=== PATIENT | male | born 1995 | race African-American/Black ===

== ENCOUNTER 2016-11-17 00:35 | Emergency (ER) | payer OTHER ==
[~2016-11-17] VITALS: Ht 175.3 cm; Wt 64.0 kg
[~2016-11-17 00:35] MED LIST: NAPR1TAB PO
[2016-11-17 05:50] VITALS: BP 101/62
== END 2016-11-17 07:07 | disposition left against medical advice (07) ==
LOC: ER 00:35
DX: Z53.21 Procedure and treatment not carried out due to patient leaving prior to being seen by health care provider (principal)

== ENCOUNTER 2020-06-21 19:59 | Emergency (ER) | payer MEDICAID, OTHER ==
[~2020-06-21] VITALS: Ht 175.3 cm; Wt 66.1 kg
[2020-06-21 20:27] VITALS: BP 110/52
[2020-06-21] MEDS ORDERED: ONDANSETRON HCL 4MG TABLET PO ONE (20:30)
[2020-06-21] MEDS ORDERED: DICYCLOMINE 10 MG/5 ML ORAL SYR PO STA (20:30)
[2020-06-21] MEDS ORDERED: MAGNESIUM/ALUMINUM HYDROXIDE/SIMETHICONE 30ML UDC PO STA (20:30)
[2020-06-21] MEDS ORDERED: VISCOUS LIDOCAINE 2% 15 ML UDC PO STA (20:30)
[2020-06-21] MEDS ORDERED: ONDA4TAB5 PO (21:09)
== END 2020-06-21 21:25 | disposition home or self-care (01) ==
LOC: ER 19:59
DX: R10.9 Unspecified abdominal pain (principal); R11.2 Nausea with vomiting, unspecified; Z98.890 Other specified postprocedural states; Z88.0 Allergy status to penicillin
CPT/HCPCS: 99284; Q0162

== ENCOUNTER 2020-06-23 13:29 | Emergency (ER) | payer MEDICAID ==
[~2020-06-23] VITALS: Ht 175.3 cm; Wt 65.0 kg
[~2020-06-23 13:29] MED LIST changes: +ONDA4TAB5 PO
[2020-06-23] MEDS ORDERED: MAGNESIUM/ALUMINUM HYDROXIDE/SIMETHICONE 30ML UDC PO STA (20:24)
[2020-06-23] MEDS ORDERED: ONDANSETRON 4MG ODT PO STA (20:24)
[2020-06-23] MEDS ORDERED: VISCOUS LIDOCAINE 2% 15 ML UDC PO STA (20:24)
[2020-06-23] MEDS ORDERED: LORAZEPAM 1MG TABLET PO ONE (20:30)
[2020-06-23 21:13] LABS: BASOPHILS % 0.6 % (0.0-2.0); HEMOGLOBIN. 15.2 g/dL (14.0-18.0); MEAN CORPUSCULAR HEMOGLOBIN 32.3 pg (28.0-32.0); MEAN CORPUSCULAR VOLUME 93.2 fL (80.0-94.0); MEAN PLATELET VOLUME 8.3 fl (7.4-10.4); MONOCYTES % 8.7 % (2.0-8.0); NEUTROPHILS % 71.7 % (40.0-76.0); PLATELET 273 x1000/uL (130-400); RED BLOOD CELL COUNT 4.72 mill/uL (4.7-6.1); RED CELL DISTRIBUTION WIDTH 14.4 % (11.6-14.6)
[2020-06-23 21:21] LABS: CLARITY URINE CLOUDY (CLEAR); COLOR URINE YELLOW (YELLOW); KETONES URINE 2+ (NEGATIVE); LEUKOCYTE ESTERASE URINE NEGATIVE (NEGATIVE); NITRITE URINE NEGATIVE (NEGATIVE); OCCULT BLOOD URINE NEGATIVE (NEGATIVE); PROTEIN URINE 1+ (NEGATIVE); SPECIFIC GRAVITY URINE 1.033 (1.005-1.030)
[2020-06-23 21:22] LABS: CHLORIDE 104 mEq/L (98-107)
[2020-06-23 22:00] VITALS: BP 125/67
== END 2020-06-23 22:15 | disposition home or self-care (01) ==
LOC: ER 13:29
DX: K90.49 Malabsorption due to intolerance, not elsewhere classified (principal); F12.10 Cannabis abuse, uncomplicated; R11.2 Nausea with vomiting, unspecified; Z88.0 Allergy status to penicillin; Z98.890 Other specified postprocedural states
CPT/HCPCS: 36415; 80053; 81003; 83690; 85025; 99284; Q0162

== ENCOUNTER 2020-07-01 08:24 | Emergency (ER) | payer MEDICAID ==
[~2020-07-01] VITALS: Ht 175.3 cm; Wt 64.0 kg
[2020-07-01] MEDS ORDERED: FAMOTIDINE 20MG/2ML VIAL IV STA (08:51)
[2020-07-01] MEDS ORDERED: METOCLOPRAMIDE HCL 10MG/2ML VIAL IV STA (08:51)
[2020-07-01] MEDS ORDERED: DIPHENHYDRAMINE 50MG/ML VIAL IV ONE (09:00)
[2020-07-01] MEDS ORDERED: HALOPERIDOL LACTATE 5MG/ML VIAL IM ONE (09:00)
[2020-07-01] MEDS ORDERED: SODIUM CHLORIDE 0.9% 1,000 ML IV ONE (09:00)
[2020-07-01 09:15] LABS: BASOPHILS % 0.5 % (0.0-2.0); EOSINOPHILS % 0.7 % (0.0-5.0); HEMATOCRIT. 43.8 % (42.0-52.0); LYMPHOCYTES % 10.2 % (20.0-50.0); MEAN CORPUSCULAR VOLUME 93.4 fL (80.0-94.0); MEAN PLATELET VOLUME 7.9 fl (7.4-10.4); MONOCYTES % 7.8 % (2.0-8.0); NEUTROPHILS % 80.8 % (40.0-76.0); PLATELET 267 x1000/uL (130-400); RED BLOOD CELL COUNT 4.69 mill/uL (4.7-6.1); RED CELL DISTRIBUTION WIDTH 14.1 % (11.6-14.6)
[2020-07-01 09:17] LABS: CHLORIDE 104 mEq/L (98-107)
[2020-07-01 09:46] LABS: CLARITY URINE CLEAR (CLEAR); COLOR URINE YELLOW (YELLOW); KETONES URINE 1+ (NEGATIVE); LEUKOCYTE ESTERASE URINE NEGATIVE (NEGATIVE); NITRITE URINE NEGATIVE (NEGATIVE); OCCULT BLOOD URINE NEGATIVE (NEGATIVE); PH URINE 5.5 (4.5-8.0); PROTEIN URINE TRACE (NEGATIVE); SPECIFIC GRAVITY URINE 1.029 (1.005-1.030)
[2020-07-01] MEDS ORDERED: METO5TAB2 MT (12:02)
[2020-07-01] MEDS ORDERED: FAMO-262 PO (12:02)
[2020-07-01 13:15] VITALS: BP 107/50
== END 2020-07-01 13:19 | disposition home or self-care (01) ==
LOC: ER 08:24
DX: R11.10 Vomiting, unspecified (principal); F12.10 Cannabis abuse, uncomplicated; Z88.0 Allergy status to penicillin; Z98.890 Other specified postprocedural states
CPT/HCPCS: 36415; 80053; 81003; 83690; 84484; 85025; 93005; 96372; 96374; 96375; 99284; J1200; J1630; J2765; J3490; J7030

== ENCOUNTER 2020-12-16 18:42 | Emergency (ER) | payer MEDICAID, OTHER ==
[~2020-12-16] VITALS: Ht 175.3 cm; Wt 68.0 kg
[~2020-12-16 18:42] MED LIST changes: +FAMO-262 PO; +METO5TAB2 MT
[2020-12-16 18:47] VITALS: BP 109/70
[2020-12-17] MEDS ORDERED: COM10 MT (03:27)
== END 2020-12-16 20:03 | disposition left against medical advice (07) ==
LOC: ER 18:42
DX: Z53.21 Procedure and treatment not carried out due to patient leaving prior to being seen by health care provider (principal)

== ENCOUNTER 2020-12-17 00:09 | Emergency (ER) | payer OTHER ==
[~2020-12-17] VITALS: Ht 175.3 cm; Wt 68.0 kg
[2020-12-17] MEDS ORDERED: ONDANSETRON HCL 4MG/2ML INJ IV STA (00:59)
[2020-12-17] MEDS ORDERED: MAGNESIUM/ALUMINUM HYDROXIDE/SIMETHICONE 30ML UDC PO STA (00:59)
[2020-12-17] MEDS ORDERED: VISCOUS LIDOCAINE 2% 15 ML UDC PO STA (00:59)
[2020-12-17] MEDS ORDERED: SODIUM CHLORIDE 0.9% 1,000 ML IV ONE ×2 (01:00→01:30)
[2020-12-17 01:28] LABS: HEMATOCRIT. 44.6 % (42.0-52.0); HEMOGLOBIN. 15.2 g/dL (14.0-18.0); MEAN CORPUSCULAR HEMOGLOBIN 31.7 pg (28.0-32.0); MEAN CORPUSCULAR VOLUME 93.2 fL (80.0-94.0); MEAN PLATELET VOLUME 7.9 fl (7.4-10.4); PLATELET 280 x1000/uL (130-400); RED BLOOD CELL COUNT 4.78 mill/uL (4.7-6.1); RED CELL DISTRIBUTION WIDTH 13.9 % (11.6-14.6)
[2020-12-17] MEDS ORDERED: PROCHLORPERAZINE 10MG/2ML VIAL IM ONE (01:30)
[2020-12-17 01:34] LABS: CHLORIDE 107 mEq/L (98-107)
[2020-12-17 01:39] LABS: ETHANOL BLOOD < 10 mg/dL
[2020-12-17 01:48] LABS: INR 1.2; PROTHROMBIN TIME 12.4 sec (9.6-11.0)
[2020-12-17 03:09] LABS: CLARITY URINE CLEAR (CLEAR); COLOR URINE DARK YELLOW (YELLOW); KETONES URINE 3+ (NEGATIVE); LEUKOCYTE ESTERASE URINE NEGATIVE (NEGATIVE); NITRITE URINE NEGATIVE (NEGATIVE); OCCULT BLOOD URINE NEGATIVE (NEGATIVE); PROTEIN URINE 1+ (NEGATIVE); SPECIFIC GRAVITY URINE 1.025 (1.005-1.030)
[2020-12-17 03:20] VITALS: BP 119/65
[2020-12-17 03:23] LABS: *AMPHETAMINES SCREEN URINE NEGATIVE (NEGATIVE); *BARBITURATES SCREEN URINE NEGATIVE (NEGATIVE); *COCAINE SCREEN URINE NEGATIVE (NEGATIVE)
[2020-12-17 03:24] LABS: *BENZODIAZEPINES SCREEN URINE NEGATIVE (NEGATIVE); METHADONE URINE SCREEN NEGATIVE (NEGATIVE); OPIATES URINE SCREEN NEGATIVE (NEGATIVE); PHENCYCLIDINE URINE SCREEN NEGATIVE (NEGATIVE)
[2020-12-17 03:25] LABS: CANNABINOID URINE SCREEN PRESUMTIVE POSITIVE (NEGATIVE)
[2020-12-17] MEDS ORDERED: COM10 MT (03:27)
[2020-12-17 03:52] LABS: PLATELET ESTIMATE NORMAL
== END 2020-12-17 03:43 | disposition home or self-care (01) ==
LOC: ER 00:09
DX: F12.188 Cannabis abuse with other cannabis-induced disorder (principal); D72.829 Elevated white blood cell count, unspecified; R11.2 Nausea with vomiting, unspecified; Z88.0 Allergy status to penicillin
CPT/HCPCS: 36415; 80053; 80305; 80320; 81003; 83690; 85025; 85610; 96361; 96372; 96374; 99283; J0780; J2405; J7030; Z7610; G0480

== ENCOUNTER 2021-03-07 19:22 | Emergency (ER) | payer MEDICAID, OTHER ==
[~2021-03-07] VITALS: Ht 175.3 cm; Wt 66.0 kg
[~2021-03-07 19:22] MED LIST changes: +COM10 MT
[2021-03-07] MEDS ORDERED: IBUPROFEN 600MG TABLET PO ONE (20:30)
[2021-03-07 21:02] VITALS: BP 104/63
[2021-03-07] MEDS ORDERED: IBUP-2029 MT (21:29)
== END 2021-03-07 21:36 | disposition home or self-care (01) ==
LOC: ER 19:44
DX: R51.9 Headache, unspecified (principal)
CPT/HCPCS: 99284

== ENCOUNTER 2021-09-17 07:36 | Emergency (ER) | payer MEDICAID ==
[~2021-09-17] VITALS: Ht 175.3 cm; Wt 68.0 kg
[~2021-09-17 07:36] MED LIST changes: +IBUP-2029 MT
[2021-09-17] MEDS ORDERED: ACYC200C31 MT (08:36)
[2021-09-17 09:22] VITALS: BP 110/70
== END 2021-09-17 09:24 | disposition home or self-care (01) ==
LOC: ER 07:36
DX: A60.1 Herpesviral infection of perianal skin and rectum (principal); F12.10 Cannabis abuse, uncomplicated; Z88.0 Allergy status to penicillin
CPT/HCPCS: 99283

== ENCOUNTER 2024-04-08 16:36 | Emergency (ER) | payer MEDICAID ==
[~2024-04-08] VITALS: Ht 172.7 cm; Wt 70.0 kg
[~2024-04-08 16:36] MED LIST changes: +ACYC200C31 MT; -COM10 MT; +PROC10TA65 MT
[2024-04-08 16:37] VITALS: O2SAT 100
[2024-04-08] MEDS: ONDANSETRON HCL 4MG/2ML INJ IM STA (17:52)
[2024-04-08 18:22] LABS: CHLORIDE 107 mEq/L (98-107); POTASSIUM 3.2 mEq/L (3.5-5.1); SODIUM 142 mEq/L (136-145)
[2024-04-08 18:23] LABS: CARBON DIOXIDE 24 mEq/L (21-32)
[2024-04-08 18:26] LABS: BASOPHILS % 0.4 % (0.0-2.0); HEMATOCRIT. 47.6 % (42.0-52.0); LYMPHOCYTES % 7.4 % (20.0-50.0); MEAN CORPUSCULAR HEMOGLOBIN 32.8 pg (28.0-32.0); MEAN CORPUSCULAR HGB CONC 33.6 g/dL (31.0-37.0); MEAN CORPUSCULAR VOLUME 97.6 fL (80.0-94.0); MEAN PLATELET VOLUME 8.7 fl (7.4-10.4); MONOCYTES % 6.4 % (2.0-8.0); NEUTROPHILS % 85.8 % (40.0-76.0); PLATELET 326 x1000/uL (130-400); RED BLOOD CELL COUNT 4.88 mill/uL (4.7-6.1); RED CELL DISTRIBUTION WIDTH 14.1 % (11.6-14.6); WHITE BLOOD COUNT 13.8 x1000/uL (4.5-11.0)
[2024-04-08 18:28] LABS: GLUCOSE 125 mg/dL (70-105); UREA NITROGEN BLOOD 6 mg/dL (9-23)
[2024-04-08] MEDS: ONDANSETRON HCL 4MG/2ML INJ IV STA (19:12)
[2024-04-08] MEDS ORDERED: ONDA4TAB50 MT (23:18)
[2024-04-08 23:44] VITALS: BP 108/56; PULSE 63; RESP 18; TEMP 36.55848; O2SAT 100
[2024-04-08] MEDS: METOCLOPRAMIDE HCL 10MG TABLET PO ONE (23:44)
== END 2024-04-08 23:48 | disposition home or self-care (01) ==
LOC: ER 16:36
DX: K52.9 Noninfective gastroenteritis and colitis, unspecified (principal); Z79.624 Long term (current) use of inhibitors of nucleotide synthesis; Z98.890 Other specified postprocedural states; Z88.0 Allergy status to penicillin
CPT/HCPCS: 99284; 96374; 80048; 83690; 85025; 36415; 96372; J8597; J2405

== ENCOUNTER 2024-07-05 09:59 | Emergency (ER) | payer MEDICAID, OTHER ==
[~2024-07-05] VITALS: Ht 175.3 cm; Wt 79.8 kg
[~2024-07-05 09:59] MED LIST changes: +ONDA4TAB50 MT
[2024-07-05 10:12] VITALS: O2SAT 100
[2024-07-05 11:43] LABS: BASOPHILS % 0.3 % (0.0-2.0); EOSINOPHILS % 1.7 % (0.0-5.0); HEMATOCRIT. 44.5 % (42.0-52.0); HEMOGLOBIN. 14.4 g/dL (14.0-18.0); LYMPHOCYTES % 13.4 % (20.0-50.0); MEAN CORPUSCULAR HEMOGLOBIN 30.3 pg (28.0-32.0); MEAN CORPUSCULAR HGB CONC 32.5 g/dL (31.0-37.0); MEAN CORPUSCULAR VOLUME 93.3 fL (80.0-94.0); MEAN PLATELET VOLUME 7.9 fl (7.4-10.4); NEUTROPHILS % 76.6 % (40.0-76.0); PLATELET 286 x1000/uL (130-400); RED BLOOD CELL COUNT 4.77 mill/uL (4.7-6.1); RED CELL DISTRIBUTION WIDTH 14.2 % (11.6-14.6); WHITE BLOOD COUNT 12.2 x1000/uL (4.5-11.0)
[2024-07-05 11:58] LABS: CLARITY URINE CLOUDY (CLEAR); COLOR URINE YELLOW (YELLOW); GLUCOSE URINE NEGATIVE (NEGATIVE); KETONES URINE NEGATIVE (NEGATIVE); LEUKOCYTE ESTERASE URINE 3+ (NEGATIVE); NITRITE URINE NEGATIVE (NEGATIVE); OCCULT BLOOD URINE TRACE (NEGATIVE); PROTEIN URINE NEGATIVE (NEGATIVE); SPECIFIC GRAVITY URINE 1.007 (1.005-1.030)
[2024-07-05 12:20] LABS: CHLORIDE 107 mEq/L (98-107); POTASSIUM 4.5 mEq/L (3.5-5.1); SODIUM 141 mEq/L (136-145)
[2024-07-05 12:21] LABS: CALCIUM 9.5 mg/dL (8.7-10.4); CARBON DIOXIDE 28 mEq/L (21-32)
[2024-07-05 12:23] LABS: SQUAMOUS EPITHELIAL CELL URINE NONE SEEN /lpf (RARE/1+)
[2024-07-05 12:25] LABS: BACTERIA URINE 1+; RBC URINE 0-2 /hpf (0-2); WBC URINE 50-100 /hpf (0-2)
[2024-07-05 12:26] LABS: CREATININE 0.9 mg/dL (0.6-1.3); GLUCOSE 96 mg/dL (70-105); UREA NITROGEN BLOOD 9 mg/dL (9-23)
[2024-07-05] MEDS ORDERED: DOXY100C5 MT (14:45)
[2024-07-05] MEDS ORDERED: CEFP200T13 MT (14:45)
[2024-07-05 15:02] VITALS: BP 118/59; PULSE 89; RESP 14; TEMP 36.8; O2SAT 100
[2024-07-05] MEDS: CEFTRIAXONE SODIUM 500MG VIAL IM ONE (15:03)
[2024-07-05] MEDS ORDERED: IOHEXOL-350 100 ML BOTTLE ONE (15:17)
== END 2024-07-05 15:12 | disposition home or self-care (01) ==
LOC: ER 09:59
DX: K62.89 Other specified diseases of anus and rectum (principal); N39.0 Urinary tract infection, site not specified; F12.10 Cannabis abuse, uncomplicated; Z88.0 Allergy status to penicillin; Z79.899 Other long term (current) drug therapy; Z98.890 Other specified postprocedural states
CPT/HCPCS: 99285; 72193; 80048; 81003; 85025; 87086; 36415; 96372; Q9967; J0696

== ENCOUNTER 2024-10-23 09:38 | Emergency (ER) | payer MEDICAID ==
[~2024-10-23] VITALS: Ht 175.3 cm; Wt 79.0 kg
[~2024-10-23 09:38] MED LIST changes: +CEFP200T13 MT; +DOXY100C5 MT
[2024-10-23 09:46] VITALS: O2SAT 99
[2024-10-23 10:35] LABS: CLARITY URINE CLEAR (CLEAR); COLOR URINE YELLOW (YELLOW); GLUCOSE URINE NEGATIVE (NEGATIVE); KETONES URINE TRACE (NEGATIVE); LEUKOCYTE ESTERASE URINE NEGATIVE (NEGATIVE); NITRITE URINE NEGATIVE (NEGATIVE); OCCULT BLOOD URINE NEGATIVE (NEGATIVE); PH URINE 6.0 (4.5-8.0); PROTEIN URINE TRACE (NEGATIVE); SPECIFIC GRAVITY URINE 1.031 (1.005-1.030); UROBILINOGEN URINE 1.0 E.U./dL (0.2-1.0)
[2024-10-23 10:54] LABS: MUCUS URINE 3+ /lpf (NONE/TRACE); SQUAMOUS EPITHELIAL CELL URINE FEW /lpf (RARE/1+)
[2024-10-23 10:55] LABS: BACTERIA URINE NONE SEEN; RBC URINE 0-2 /hpf (0-2); WBC URINE 0-2 /hpf (0-2)
[2024-10-23 11:59] VITALS: BP 124/63; PULSE 83; RESP 18; TEMP 36.7; O2SAT 100
== END 2024-10-23 11:59 | disposition home or self-care (01) ==
LOC: ER 09:38
DX: N50.819 Testicular pain, unspecified (principal); Z88.0 Allergy status to penicillin; F12.90 Cannabis use, unspecified, uncomplicated; Z79.899 Other long term (current) drug therapy; Z98.890 Other specified postprocedural states
CPT/HCPCS: 76870; 81003; 93976; 99284

== ENCOUNTER 2025-03-04 08:20 | Emergency (ER) | payer SELFPAY ==
[~2025-03-04] VITALS: Ht 175.3 cm; Wt 73.0 kg
[~2025-03-04 08:20] MED LIST changes: +ACYC-58 MT; -ACYC200C31 MT; +IBUP-1455 MT; -IBUP-2029 MT
[2025-03-04 08:24] VITALS: O2SAT 99
[2025-03-04 09:03] LABS: BASOPHILS % 0.4 % (0.0-2.0); EOSINOPHILS % 0.7 % (0.0-5.0); HEMATOCRIT. 44.8 % (42.0-52.0); HEMOGLOBIN. 15.4 g/dL (14.0-18.0); LYMPHOCYTES % 18.6 % (20.0-50.0); MEAN PLATELET VOLUME 7.9 fl (7.4-10.4); MONOCYTES % 12.1 % (2.0-8.0); NEUTROPHILS % 68.2 % (40.0-76.0); PLATELET 345 x1000/uL (130-400); RED BLOOD CELL COUNT 4.90 mill/uL (4.7-6.1); RED CELL DISTRIBUTION WIDTH 14.9 % (11.6-14.6)
[2025-03-04 09:15] LABS: CREATININE 1.0 mg/dL (0.6-1.3); UREA NITROGEN BLOOD 10 mg/dL (9-23)
[2025-03-04] MEDS: ONDANSETRON HCL 4MG/2ML INJ IM NR (09:45)
[2025-03-04] MEDS ORDERED: METO-293 MT (11:05)
[2025-03-04] MEDS ORDERED: ONDA-241 MT (11:05)
[2025-03-04] MEDS: METOCLOPRAMIDE 10MG/10 ML UDC PO SCH (11:08)
[2025-03-04] MEDS: PANTOPRAZOLE SODIUM 40 MG/VIAL IV NR (11:08)
[2025-03-04 11:22] VITALS: BP 132/95; PULSE 84; RESP 16; TEMP 37; O2SAT 99
[2025-03-04] MEDS ORDERED: PANT20TA17 PO (11:23)
== END 2025-03-04 11:23 | disposition home or self-care (01) ==
LOC: ER 08:20
DX: R11.2 Nausea with vomiting, unspecified (principal); R65.10 Systemic inflammatory response syndrome (SIRS) of non-infectious origin without acute organ dysfunction; Z88.0 Allergy status to penicillin
CPT/HCPCS: 80048; 85025; 36415; 84145; 96372; 96374; 99284; J8597; J2405; J2470; Z7610; A4606